=== PATIENT | female | born 1950 ===

== ENCOUNTER 2019-05-03 07:38 | Inpatient (IN) | payer MEDICARE, MEDICAID, OTHER, SELFPAY ==
[2019-04-25 12:39] VITALS: BMI 34.2
[2019-05-03] VITALS (16 sets, daily range): BP systolic 109–163; BP diastolic 62–90; PULSE 83–112; RESP 10–16; TEMP 36.2–37.1; O2SAT 92–100; BMI 33.5
--- NOTE | 2019-05-03 | DI.RAD.S_ITS ---
PROCEDURE: XR CERVICAL SPINE 2V OR 3V INDICATIONS: C6-7, C7-T1 ACDF, POSTERIOR FUSION TECHNIQUE: 3 view(s) of the cervical spine were acquired. COMPARISON: None. FINDINGS: Spot fluoroscopic intraoperative images demonstrating reported C6-C7 and C7-T1 ACDF and posterior fusion Dictated by: Carlos Gallego M.D. on 05/03/2019 at 15:06 Approved by: Carlos Gallego M.D. on 05/03/2019 at 15:07
[2019-05-03] MEDS: LACTATED RINGERS 1,000 ML 42 ML IV ×2 (10:00→12:48)
--- NOTE | 2019-05-03 10:36 | PM.PREOP ---
Pre-operative Note Interval Note History & Physical reviewed/Exam performed by Physician: Yes Changes to H&P: No
[2019-05-03] MEDS: ALBUTEROL 2.5 MG/3 ML NEB (ADULT) INH (11:20)
--- NOTE | 2019-05-03 11:24 | P.OP_ITS ---
Operative Date/Time/Diagnoses Date of procedure: 05/03/19 Time of procedure: 14:35 Post-op diagnosis: same Procedure & Clinicians Procedure: C6-7, C7-T1 posterior instrumented fusion C6-7, C7-T1 anterior cervical diskectomy and fusion C6-7 and C7-T1 cages Removal of anterior cervical plate Iliac crest bone graft aspirate Use of microscope Same procedure as scheduled: Yes Indications: [age] year old female with intractable pain from cervical stenosis and disc herniation. They had failed conservative management and requested operative intervention. Risks and benefits of surgery were discussed and appropriate consents were obtained. Surgeon: Lawrence Castaneda Community Case Manager: Leidy Garcia Anesthesia Type: General Operative Notes Findings: None Closure Type: primary Specimen(s): none sent Prosthetic devices, grafts, tissues, transplants, or devices: Removed Medtronic Premiere plate Inserted [place] DTrax posteriorly and Meenu MIN-C anteriorly Applied: catheter Estimated Blood Loss (mL): 10 Procedure in detail: The patient was brought to the operating room and intubated on the stretcher. Time-out was performed. There were then rolled over to the well-padded prone position on chest rolls. Two views of fluoroscopy were taken to confirm our positioning. The neck was then prepped and draped in the standard sterile fashion. Preoperative antibiotics were given. Using fluoroscopy, we localized for planned incisions. Two small 8 mm horizontal incisions were made over the lateral masses approximately 2 fingers below our planned surgical site. We then spread down and opened up the fascia. Then percutaneously placed our Steinmann pin through the soft tissue into the facet joint at C6-7 under fluoroscopic visualization. We used the reamer to decorticate the lateral masses compromising the facet. A trocar was placed over the Steinmann pin into the facet and then the pin was removed. We used a rasp to decorticate the facet joint itself. We then filled the DTrax cage with Osteocell bone graft and impacted it into the facet joint at C6-7 under fluoroscopic guidance. We then took the lateral mass screw and placed it through the cage and then into the lateral mass for the posterior screw fixation. The studio manager was removed and we packed more bone graft down the trocar covering the lateral mass. This was done bilaterally. This completed the instrumented posterior fusion at C6-7. We then went to the next level at C7-T1. The same procedure was performed with preparation, placement of the cage with bone graft, and placement of the screw for instrumented posterior fusion bilaterally at C7-T1. The wounds were irrigated. The skin was closed and a sterile dressing placed. The patient was then rolled over to the table in the supine position and positioned for the anterior surgery. The arms were tucked and a shoulder roll was placed. The neck and left iliac crest were prepped and draped in the standard sterile fashion. A 3 cm oblique incision was made on the left side of the neck along the skin fold utilizing her previous lower incision. Bovie was used to split the platysma. We then bluntly dissected a standard anterolateral approach to the precervical fascia. A marker was placed and x-ray taken to confirm our positioning. The old plate was cleared off and removed with standard technique. We then used the Bovie to the subperiosteally lift up the longus colli muscles. Self-retaining retractors were placed. We then placed [place] pins and distracted across the C7-T1 disc space. We brought in the microscope. A complete anterior discectomy was performed at C7-T1 using a combination of scalpel, curettes, pituitaries, and [place] rongeurs. Visualization was difficult with the angle over the sternum but we rolled to take the disc all the way out down to the PLL. The bur was used to decorticate the endplates. At the end a nerve hook could be swept cephalad caudally and out the neural foramen and everything was open. We trialed for our cages. A small stab incision was made over the left iliac crest. We placed a Jamshidi aspiration needle into the iliac crest and aspirated several mL of bone marrow graft. We then took our Meenu LDR MIN-C cage and packed it with Osteocell, and mixed in the bone marrow aspirate. The cage was then placed into the disc space under fluoroscopic guidance. The 2 locking plates were placed through the cage for fixation. This completed the ACDF at C7-T1. We then went to the next level at C6-7. Again a complete diskectomy was performed now including taking down the PLL and posterior osteophytes and disc material. The endplates were prepped with a bur. We trialed and then packed our MIN-C cage with the bone graft and then placed into the disc space. The locking plates were placed as well. This completed the ACDF at C6-7. Final x- rays were taken. The wound was copiously irrigated. There was no bleeding. The carotid was bleeding nicely. The platysma was closed. The superficial skin were closed. A Steri-Strip was placed over the iliac crest incision. Sterile dressings were placed. The patient was then extubated and brought to the recovery room without complication. Complications: none Post-operative Condition: stable Disposition: PACU Plan for aftercare: Inpatient. Up with therapy.
[2019-05-03] MEDS: CEFAZOLIN 2 GM/100 ML FROZ.PIGGY IV ×2 (11:45→19:55)
--- NOTE | 2019-05-03 12:20 | SUR.OPER ---
Prone on padded OR bed, head in foam head support, gel chest rolls, gel pad under knees, pillow under lower legs, toes free of pressure, arms tucked to the sides and secured with draw sheet and towel clips. Bilateral shoulders taped to the bed. Safety belt at thigh.
[2019-05-03] MEDS: BUPIVACAINE 0.25% W/ EPI 30 ML VIAL 60 ML INJ (12:49)
[2019-05-03] MEDS: THROMBIN (RECOMBINANT) 5,000 UNIT VIAL 5000 UNIT TOP (12:50)
[2019-05-03] MEDS: SODIUM CHLORIDE 0.9% 1,000 ML, GENTAMICIN 80 MG IRR (12:50)
--- NOTE | 2019-05-03 13:24 | SUR.OPER ---
Supine on padded OR bed, head on pillow, arms wrapped in gel pad and tucked to the sides, legs uncrossed, safety belt at thigh, tape over blanket over lower legs.
[2019-05-03] MEDS: HYDROMORPHONE 2 MG INJ 0.5 MG IV ×6 (15:25→15:50)
[2019-05-03] MEDS: OXYCODONE IR 5 MG TABLET 10 MG PO (18:19)
[2019-05-03] MEDS: ATORVASTATIN 20 MG TABLET PO (18:19)
[2019-05-03] MEDS: LACTATED RINGERS 1,000 ML 125 ML IV (18:20)
[2019-05-03] MEDS: OXYCODONE IR 5 MG TABLET 15 MG PO (19:55)
[2019-05-03] MEDS: GABAPENTIN 300 MG CAPSULE PO (20:09)
[2019-05-03] MEDS: SENNOSIDES 8.6 MG TABLET 17.2 MG PO (20:09)
[2019-05-03] MEDS: diphenhydrAMINE 25 MG TABLET PO (20:09)
[2019-05-03] MEDS: DOCUSATE 100 MG CAPSULE PO (20:09)
[2019-05-03] MEDS: METFORMIN HCL 500 MG TABLET 1000 MG PO (20:09)
[2019-05-03] MEDS: TOPIRAMATE 25 MG TABLET 50 MG PO (20:11)
[2019-05-03] MEDS: INSULIN ASPART 100 UNIT/ML INSULN PEN 30 UNIT SUBCUT (21:11)
[2019-05-04] VITALS (8 sets, daily range): BP systolic 100–127; BP diastolic 52–64; PULSE 83–97; RESP 16–19; TEMP 36.1–37.7; O2SAT 95–98
[2019-05-04] MEDS: LACTATED RINGERS 1,000 ML 125 ML IV ×2 (02:57→11:29)
[2019-05-04] MEDS: OXYCODONE IR 5 MG TABLET 15 MG PO ×2 (02:58→05:58)
[2019-05-04] MEDS: CEFAZOLIN 2 GM/100 ML FROZ.PIGGY IV (04:47)
--- NOTE | 2019-05-04 08:10 | P.PN_ITS ---
Subjective Subjective Date Patient Seen: 05/04/19 Time Patient Seen: 08:10 Interval history: Pain is all on the back of the neck, 7 to 8. She has been taking 15 mg of oxycodone but it is making her itch. She does report that after previous surgeries that given her some Dilaudid and she responded well to that. Exam Vital Signs (past 8 hours): - 05/04/19 00:20 05/04/19 05:44 Temperature 99.3 F 99.8 F H Pulse Rate 83 87 Respiratory Rate Blood Pressure 123/62 112/57 L Pulse Oximetry 98 96 Oxygen Delivery Method Room Air Oxygen Flow Rate 0 Const Orientation: alert and oriented x3 Back/Spine/Pelvis Other: Minimal drainage on posterior dressing, however, this was changed overnight. Anterior clean dry intact. 5/5 motor both upper extremities. Drain over last 3 shifts Assessment & Plan Post-op Postoperative Procedures: Procedures Operation Date: 05/03/19 10:15 Actual Procedures Side Surgeon p * C67 & C7T1 anterior discectomy & fusion & instrumented posterior fusion with bone graft , removal of old cervical plate Lawrence Castaneda MD We are going to work on pain control. I will add Dilaudid to see if that can help while she is in the hospital. She does have a history of chronic pain management and her pain doctor had filled all of her prescriptions prior to surgery with anticipated increased usage after surgery so she will not need new prescriptions from us. She normally takes oxycodone but her pain doctor also gave her some morphine. She is not sure if this was long-acting her short- acting, I think she is best to stay with just straight oxycodone when she goes home as she has not taken the morphine yet. I will add a sliding scale insulin today. Her drain output has been moderate, I am going to keep this in.
[2019-05-04] MEDS: DOCUSATE 100 MG CAPSULE PO ×2 (08:18→21:37)
[2019-05-04] MEDS: METFORMIN HCL 500 MG TABLET 1000 MG PO ×2 (08:19→21:36)
[2019-05-04] MEDS: TOPIRAMATE 25 MG TABLET 50 MG PO ×2 (08:20→21:37)
[2019-05-04] MEDS: FLUTICASONE 120 SPRAY/16 GM SPRAY.SUSP NASAL (08:20)
--- NOTE | 2019-05-04 08:23 | PC.NURSE ---
Addendum entered by Nolvia Arias R.N. 05/04/19 13:52: pt reporting mild irritation to adhesives around posterior neck dressings. pt declining benadryl. Reporting moderate pain after Dilaudid, but resting in bed currently. Original Note: AM SHIFT pt AO and receptive to care. Reporting 8/10 pain to neck, 15mg Oxycodone administered at 0600. Dressings CDI. Drain compressed. [place] drainage to gravity. Soft collar on. SCD's running. Reporting mild, generalized itching. Doctor made rounds during my assessment, stated he will add a sliding insulin scale and dilaudid. Currently holding pt's 0900 losartan for BP of 100/50. We will recheck BP after breakfast and assess losartan need then.
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
[2019-05-04] MEDS: INSULIN ASPART 100 UNIT/ML INSULN PEN 30 UNIT SUBCUT ×2 (09:45→18:37)
[2019-05-04] MEDS: INSULIN GLARGINE 100 UNIT/ML 3ML PEN 45 UNIT SUBCUT (09:46)
--- NOTE | 2019-05-04 09:50 | PC.NURSE ---
Addendum entered by Nolvia Arias R.N. 05/04/19 14:39: pt declined her 1unit of Novalog at 1100. stated she wants to wait until she eats. After she ate, pt declined insulin again. CBG was 99. Original Note: INSULIN pt takes set units for novalog and lantus. pt request only 20 units of Novalog this AM due to not eating a lot of breakfast. CBG 148 before breakfast and monitor for complications. Denying s/s of hypoglycemia currently.
[2019-05-04] MEDS: HYDROMORPHONE 4 MG TABLET PO ×3 (11:28→19:21)
--- NOTE | 2019-05-04 11:46 | CM.DANOTE ---
Addendum entered by Yasmin Barr LPN 05/04/19 14:36: Florence back from [facility]: she confirms they will have a female bed open Monday. Says her colleague Melissa will be on Monday to follow on the process. She said she does see that pt had rehabbed there before but in 2018, not 2019. She is aware that the pt expects to d/c to her home setting after she is ready to leave the snf. She confirms there is no direct admission line and that vm is checked on Monday but no one in admissions will be present so will be best for the DCPlanner here to followup Monday morning to continue the process. Addendum entered by Yasmin Barr LPN 05/04/19 13:20: Spoke with office assistant receptionist at [facility] in [place]: [phone] and was sent to admission office/left vm which is checked frequently 7 days week. Faxed referral information to : [phone]. CM team will be following. PASRR will be needed. Original Note: Discharge Planning/Care Management DCP: assessment: case received, EMR reviewed and met with pt. Introduced self and role. Pt is a 69 year old female who admitted yesterday for a planned cervical fusion and removal of old hardware. Review of her scanned H&P from orthopedic clinic shows history of multiple spinal and joint surgeries. Pt reports I've had about 40 surgeries over the years. Payer: Medicare and Medicare Admission status: INPT: just confirmed by UR VENU Smith PT and OT are ordered and seeing pt for first time today. OT CJ just reported she was recommending snf rehab at d/c. Pt says she has planned for snf stay and that she did talk with the surgeon about this. (see dcp template below for details.) SNF choice list: discussed. Choice: [facility] can take me, they are the best in our area and I have been there before in October after knee surgery. Pt confirms she lives alone and has no family support but does have alevism family. She identifies 3 people who have offered to drive her to the facility when she is stable for d/c. PCP: Michael Brown Pt also is under care of a pain clinic to help manage her long standing chronic pain care. Now that have confirmation of admission status will make referral to [facility] and go from there. Will keep pt updated, have updated RN and [facility] as their notes thus far do not indicate a post d/c plan. CM Discharge Assessment Start: 05/04/19 11:42 Freq: Status: Active Protocol: Document 05/04/19 11:43 ITV (Rec: 05/04/19 11:46 ITV [id number]) Discharge Planning Assessment Advance Directives? No Advance Directives on File No History Provided By Patient,Medical Record Has Patient been admitted in last 30 No days? Prior Living Arrangements House Household Members none Independent with ADL's Yes: limited by pain Is patient alert and oriented? Yes Comment has some DME from prior surgeries. Was not currently using anything prior to this surgery. Patient/Family Preference Long-Term Facility Comment was at [facility] in October 2018. Prefers this if possible. Additional Comment Admission status still in review: per UR RN Luis: will wait to give referral until this is known Medicare Choice List Provided Yes Whiteboard Updated in Patient Room with Yes name and ext. # of Mobile Phlebotomist Review Status In Process Pre-Anesthesia Assessment Start: 04/25/19 12:37 Freq: Status: Complete Protocol: Document 04/25/19 12:39 CAB (Rec: 04/25/19 13:55 CAB [id number]) Pre-Anesthesia Assessment PAC Comment Pt states she is not going to take any of her medications day before surgery, I don't do that Pt has a pain management contract and wants it noted not to give her ANY pain med prescriptions Patient Information Reviewed Via Phone Assessment Assessment Completed With Patient H&P Completed Within 30 Days Yes Diagnostic Results BMP/CMP,CBC,EKG Comment Outside labs/EKG scanned to record Primary Care Provider Michael Brown Medical Clearance Received Yes Seen Specialist in Last 12 Months Yes Specialist Seen Orthopedist Comment PCP pre-op clearance 03/07/19 scanned to record Primary Language Filipino Preferred Language Filipino Fire Sprinkler Designer Required No Height 147.32 cm Weight 74.389 kg Body Mass Index (BMI) 34.2 Hearing Ability Normal Visual Assist Glasses Dentition Type Full- Upper & Lower Barriers to Learning Memory Other Aids No Hx Anesthesia Reactions No Hx Family Anesthesia Reaction No Hx Malignant Hyperthermia No Hx Blood Transfusions No Anesthesia Review Requested No Leadite Worker Yes: Minimal support, niece is bipolar/epileptic alcohol intake former Alcohol Intake Frequency Other: Hx of ETOH, quit 41 years ago Smoking Status Former smoker how long ago did patient quit smoking Quit 1995 Substance Use Type does not use Pain Present Pain Reported Musculoskeletal Symptoms Abnormal Gait,Difficulty Walking,Joint Pain,Limited Range of Motion,Neck Pain, Numbness,Tingling History of Falling (Recent or History of No ) Patient is completely paralyzed or No completely immobile Mental Status Oriented to own ability Is patient on oxygen? No Does patient have LAL/SOB No Hx Sleep Apnea Yes CPAP/BIPAP use prescribed not used Currently Taking a Beta Nathaniel No Can You Climb a Flight of Stairs Without Yes SOB Hx Chest Pain No Hx SOB No Hx Syncope or Dizziness No Anti-Coagulant Therapy No Has a Biometric Screener No Cardiac Testing No Hx Pacemaker/ICD No Pacemaker Rep Required? No Cardiac Clearance Received Not Applicable Diet Type At Home Regular dysphagia No Bladder Pattern Urgency Urinary Catheter Present No Hx Urinary Self Catheterization No Diabetes Yes HgbA1C 6.7 Date 03/21/19 Patient No Lactating No Hx Drug Resistant Organism No Presence of External or Internal Medical Yes: Hardware in [employer] locations Have you traveled outside the [facility] in the last 30 days? Marital Status Single Lives With none Prior Living Arrangements House Number of Floors (Floors) One Floor Patient Discharge Plan Description Return Home Comment Niece-only supprt, bipolar, epileptic Feels Safe in Current Environment Yes Been Physically Hurt or Threatened By a No Person in Current Environment Do you have thoughts of harming yourself None or others? Are you currently considering suicide? No Do you have a plan to hurt yourself or No Plan others? Do You Have Any Spiritual Beliefs That No May Affect Your HC Choices? Do You Have Any Cultural Practices That No May Affect Your HC Choices? Comment Mu-Ism Who Can We Speak to About Patient's Care Family, friends Identifying Code for Release of Patient Declines to issue Information Health Care Proxy/Next of Kin Aleksandra (friend) Health Care Proxy Emergency Contact Name Aleksandra (friend) Emergency Contact Advance Directives? No PAC Instructions Durable medical equipment, Medications to take/avoid, Nasal antibiotic,No ETOH/ petroleum product on skin DOS, NPO,Post-op transportation,Pre -surgical wash,Sturdy shoes/ comfortable clothes,Do not bring valuables and remove jewelry
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
--- NOTE | 2019-05-04 13:47 | PT.IPTN ---
Current Diagnoses Other spondylosis with myelopathy, cervical region (05/03/19) Other cervical disc displacement, unspecified cervical region (05/03/19) Arthrodesis status (05/03/19) Surgery Performed Operation Date: 05/03/19 10:15 Actual Procedures p * C67 & C7T1 anterior discectomy & fusion & instrumented posterior fusion with bone graft , removal of old cervical plate - Lawrence Castaneda MD Physical Therapy Treatment Note M2 PT-IP Current Condition Start: 05/04/19 12:26 Freq: NEEDED Status: Active Protocol: Document 05/04/19 09:35 AB (Rec: 05/04/19 12:39 AB [id number]) Physical Therapy Current Condition Current Condition Evaluation Date 05/04/19 Treatment Diagnosis s/p C6-T1 posterior fusion and ACDF; difficulty in walking Onset Date 05/03/19 Precautions Cervical Spine Precautions Soft Collar for Comfort,No Heavy Lifting,Log Roll M3 PT-IP Subjective Start: 05/04/19 12:26 Freq: NEEDED Status: Active Protocol: Document 05/04/19 13:40 GGD (Rec: 05/04/19 13:47 GGD [id number]) Subjective Physical Therapy Visit Type Type Treatment Note Visit Start Time 13:21 Visit Stop Time 13:40 Total Visit Minutes 19 Number of BREAKER OILER Visits 1 Physical Therapy Visit Comments Patient Comments Pt states that she want's to go back to bed. Therapy Pain Assessment Pain When Pain Assessed At Rest Pain Present Pain Present Pain Reported M4 PT-IP Mobility and Gait Start: 05/04/19 12:26 Freq: NEEDED Status: Active Protocol: Document 05/04/19 13:40 GGD (Rec: 05/04/19 13:47 GGD [id number]) PT-Bed Mobility Assessment Rolling Type of Rolling Log Rolling Sit to Supine Sit to Supine Maximum Assistance,1 Person Assistance,Bedrails PT-Transfer Assessment Sit to and From Stand Sit to and from Stand Minimal Assistance,1 Person Assistance,Use of Upper Extremities Equipment Transfer Assistive Device Gait Belt,Front Wheeled Walker Orthotic/Prosthetic Devices or Brace: Yes Transfers Transfer Destination Chair Transfer Ability Level of Assist Minimal Assistance,1 Person Assistance,Use of Upper Extremities Gait Assessment Gait Gait Assistance Required: Minimum Assistance,1 Person Assist Distance (Feet) 12 Able to Maintain Weight Bearing Status Yes During Gait Assistive Devices Assistive Device Gait Belt,Front Wheeled Walker Orthotic/Prosthetic Devices or Brace: Yes Gait Deviations General Gait Pattern Decreased Stride Length, Decreased Feet Clearance Factors Limiting Gait Function Factors Limiting Gait Function Decreased Activity Tolerance, Decreased Strength,Limited Range of Motion,Pain,Poor Balance,Poor Safety Awareness M5 PT-IP Objective Assessments Start: 05/04/19 12:26 Freq: NEEDED Status: Active Protocol: Document 05/04/19 09:35 AB (Rec: 05/04/19 12:39 AB [id number]) Orientation Orientation/Cognition Level of Alertness Alert Orientation Name,Age,Situation Safety Awareness Decreased Safety Awareness Memory Description Short Term Impaired Comments When asked if there will be somebody assist her at home, pt answered I don't know. When asked if she can call anybody assist her when needed if she goes home, pt answered : I don't Know Gross Range of Motion Lower Extremity ROM Assessment Within Functional Limits Strength Lower Extremity Strength Hip 4-/5 Knee 4-/5 Muscle Tone Muscle Tone WNL Yes M6 PT-IP Treatment Start: 05/04/19 12:26 Freq: NEEDED Status: Active Protocol: Document 05/04/19 13:40 GGD (Rec: 05/04/19 13:47 GGD [id number]) Physical Therapy Treatment Education Education Provided Precautions M7 PT-IP Assessment and Plan Start: 05/04/19 12:26 Freq: NEEDED Status: Active Protocol: Document 05/04/19 13:40 GGD (Rec: 05/04/19 13:47 GGD [id number]) PT Summary Assessment and Plan Summary Assessment Summary Pt is max a with bed mobility. She was min A for sit to stand and gait. Pt is very slow moving. Pt unsteady with gait. Pt will need SNF rehab before d/c home. Frequency of Treatment Frequency Of Treatment Twice a Day Treatment Plan Physical Therapy Treatment Plan Bed Mobility Training,Transfer Training,Gait Training, Therapeutic Exercise,Balance Retraining,Post Op Education, Discharge Planning,Hot or Cold Pack,Neuromuscular Re-ed, Coordination Retraining,Manual Therapy Recommendations To Nursing Amount of Assist Needed 1 Person Assist Discharge Recommendations PT Discharge Recommendations SNF Rehab
[2019-05-04] MEDS: diphenhydrAMINE 25 MG TABLET PO (15:33)
--- NOTE | 2019-05-04 16:03 | PT-IP ANOTE ---
Talked to pt's nurse Nolvia this morning if a speech therapist needs to see the pt. Nurse stated that pt is swallowing fine with her and able to take her medication without any issues and pt's throat pain is due to recent surgery. stated that it is ok if speech will not be able to see the pt today.
[2019-05-04] MEDS: ATORVASTATIN 20 MG TABLET PO (18:10)
[2019-05-04] MEDS: hydrOXYzine pamoate 25 MG CAPSULE PO (18:34)
--- NOTE | 2019-05-04 18:41 | PC.NURSE ---
Pt requests when to do blood glucose checks and how much insulin to give. She does not follow the orders as written.
[2019-05-04] MEDS: GABAPENTIN 300 MG CAPSULE PO (21:36)
[2019-05-04] MEDS: SENNOSIDES 8.6 MG TABLET 17.2 MG PO (21:36)
[2019-05-05] VITALS (8 sets, daily range): BP systolic 107–125; BP diastolic 53–74; PULSE 89–99; RESP 16–22; TEMP 36.2–37.7; O2SAT 92–96
--- NOTE | 2019-05-05 01:59 | PC.NURSE ---
Addendum entered by Annalee Rodriguez R.N. 05/05/19 06:25: 0615 Catheter d'cd as per MD order; instructed in sx/prevention of UTI Addendum entered by Annalee Rodriguez R.N. 05/05/19 03:07: When repositioned, patient complains of 10/10 pain in posterior incisional area; medicated with po Dilaudid. Original Note: Patient drowsy upon being awakened and speech is delayed and having some difficulty word finding initially, but after more awake responses more clear. Breath sounds with inspiratory crackles at bases with RA sat of 92%. HRR. Denies nausea. BT present and is passing flatus. Indwelling catheter is patent; urine is clear yellow. Needing assistance to reposition q2h as not moving herself. Has limited ROM in bilateral UE and is weak in all extremities; denies tingling/numbness. States she has difficulty swallowing water but denies throat pain. Does state posterior neck hurts and rates severity as 5/10 but once repositioned, declined offer of pain medication although did agree to ice pack. Dressings to anterior/posterior neck and left hip are CDI. GLO/Al drain is compressed and intact. Soft collar applied and calf SCD's also applied at this time. Reports 1 fall in past 3 months; fall risk score is high and bed alarm is activated.
[2019-05-05] MEDS: HYDROMORPHONE 4 MG TABLET PO ×4 (03:05→14:55)
--- NOTE | 2019-05-05 07:26 | PM.PNPO.1 ---
Subjective Subjective Date Patient Seen: 05/05/19 Time Patient Seen: 07:26 Interval history: Her pain was as good as 5/10 but is back up to about 8/10 right now. All in the neck. She is also complaining of increasing in her chronic low back pain. Exam Vital Signs (past 8 hours): - 05/05/19 01:45 PDT 05/05/19 05:58 Temperature 99.8 F H 97.6 F Pulse Rate 98 H 99 H Respiratory Rate 20 20 Blood Pressure 124/74 121/66 Pulse Oximetry 92 96 Oxygen Delivery Method Room Air Oxygen Flow Rate 0 Const Orientation: alert and oriented x3 Back/Spine/Pelvis Other: Mild dry drainage on posterior dressing. Anterior clean dry intact. Drain output 15/5/5 over the last 3 shifts. 5/5 motor both upper extremities. Assessment & Plan Post-op Postoperative Procedures: Procedures Operation Date: 05/03/19 10:15 Actual Procedures Side Surgeon p * C67 & C7T1 anterior discectomy & fusion & instrumented posterior fusion with bone graft , removal of old cervical plate Lawrence Castaneda MD she seems to be doing better on the Dilaudid and we will stick with that. It is not causing the itching that the oxycodone was. She is very slow to mobilize, I think she is going to require group home and we're looking into that for tomorrow. I think her chronic low back pain will be better once she is up and moving around better.
--- NOTE | 2019-05-05 07:28 | PM.DS.1 ---
History of Present Illness History of Present Illness Date Patient Seen: 05/06/19 Time Patient Seen: 07:42 Chief complaint: Cervical Fusion Anterior/Posterior Narrative: 69-year-old female with 4 previous cervical surgeries. She has had a posterior laminectomy as well as a C3 through 6 ACDF. She presented with increasing pain and weakness going into the arms as well as increasing neck pain. Only temporary relief with massage and physical therapy. She has a history of chronic pain is treated with chronic narcotic medication, oxycodone q.i.d. through pain management. Discharge Providers Provider Date of admission: 05/03/19 07:38 Discharge Date: 05/06/19 Primary care physician: Michael Brown MD Consults: 04/25/19 13:56 Consult to Respiratory Therapy Evaluate & Treat Comment: INPT 05/03, XI-No CPAP Physician Instructions: Evaluate and treat 05/03/19 08:40 Consult to Respiratory Therapy Evaluate & Treat Comment: Physician Instructions: Evaluate and treat 05/03/19 17:13 Consult to Occupational Therapy Evaluate & Treat Comment: Physician Instructions: Evaluate and treat Consult to Physical Therapy Evaluate & Treat Comment: Physician Instructions: Evaluate and Treat Consult to Speech Therapy Evaluate & Treat Comment: s/p acdf Physician Instructions: Evaluate and treat Discharge provider: Lawrence Castaneda MD Summary Hospital Course Discharge Diagnosis: Cervical stenosis with myelopathy Hospital Course: She was admitted on 05/03/2019 for a C6-7 and C7-T1 anterior cervical diskectomy and fusion and intermittented posterior fusion. After surgery her arm symptoms had mostly all resolved but she was having significant pain in the neck. She was having a fair amount of itching from the oxycodone and was switched over to Dilaudid which seemed to work better for pain control as well as not cause the itching. However, she was very slow with mobilization and is felt she would best benefit with skilled inpatient rehab. She had a drain placed at the time of surgery. Had a fair amount of output the 1st day but by the 2nd day after surgery had dried up and was removed. Status at Discharge Cognitive/behavioral status at discharge: oriented Functional status at discharge: uses cane/walker Overall status at discharge: patient is progressing back to baseline Exam Vital Signs (past 8 hours): - 05/05/19 01:45 PDT 05/05/19 05:58 Temperature 99.8 F H 97.6 F Pulse Rate 98 H 99 H Respiratory Rate 20 20 Blood Pressure 124/74 121/66 Pulse Oximetry 92 96 Oxygen Delivery Method Room Air Oxygen Flow Rate 0 Const Orientation: alert and oriented x3 Back/Spine/Pelvis Other: 5/5 motor both upper extremities. Anterior dressing CDI. Mild dry drainage on the posterior dressing Objective Labs Result Diagrams: 05/05/19 11:40 05/06/19 03:34 Discharge Plan Discharge Plan Patient Disposition: [facility] Other facility: [place] Under care of provider: facility physician Consult as needed: Dental, Hearing, Mental health, Podiatry and Vision Discharge Med Rec/Prescriptions Prescriptions: New diazepam 5 mg Tablet 5 mg PO Q6HR PRN (Reason: Spasms) Qty: 20 RF: 0 hydromorphone 2 mg Tablet See Rx Instructions .ROUTE .COMPLEX PRN (Reason: Pain, Severe (7-10)) Qty: 40 RF: 0 Continued atorvastatin 20 mg Tablet 20 mg PO QPM RF: 0 topiramate 25 mg Tablet 50 mg PO BID RF: 0 metformin 1,000 mg Tablet 1,000 mg PO BID RF: 0 losartan 25 mg Tablet 12.5 mg PO DAILY RF: 0 albuterol sulfate [Ventolin HFA] 90 mcg/actuation Hfa Aerosol Inhaler 2 puff INHALATION TID PRN (Reason: sob) RF: 0 fluticasone propionate [Flonase Allergy Relief] 50 mcg/actuation [place],Suspension 2 spray INTRANASAL DAILY RF: 0 Novolog Flexpen U-100 Insulin 100 unit/mL (3 mL) Insulin Pen 30 unit SUBCUT TID RF: 0 Basaglar KwikPen U-100 Insulin 100 unit/mL (3 mL) Insulin Pen 45 unit SUBCUT QAM RF: 0 Narcan 4 mg/actuation [place],Non-Aerosol 1 spray INTRANASAL Q2M PRN (Reason: accidental overdose) RF: 0 Discontinued diclofenac sodium [Voltaren] 1 % Gel 2 g TOPICAL TID RF: 0 oxycodone 10 mg Tablet 10 mg PO Q4H RF: 0 Follow up/Referrals: Michael Brown MD [Primary Care Provider] - Discharge Health Status Brief summary of current health status: 69-year-old female with a C6-7 and C7-T1 anterior and posterior fusion on 05/03/2019. She has a history of chronic pain medication and had difficulty with pain control postoperatively in the hospital. She was limited in her mobility and it was felt she would benefit from skilled rehab. Multidrug resistant organism: No MDRO Precautions: [place] Provider Discharge Instructions Diet: Carb-consistent/Diabetic Liquid consistency: Normal/Thin Food texture: Regular Activity: 10 lbs max lift, soft collar for comfort Skin/Wound/Dressing Care Report to your healthcare provider any signs of infection, such as:: chills, fever, night sweats, increased pain, unusual drainage and unusual redness Dressing: may change dressings and shower POD #5 (05/08/19) Special Rehabilitation Services Reason for rehabilitation: Post-operative therapy Rehab type: Physical therapy, Occupational therapy and Speech therapy Visit Report/Discharge Packet Stand Alone Forms: Surgery Discharge Discharge Data Primary Care Provider: Michael Brown
[2019-05-05] MEDS: SODIUM CHLORIDE 0.9% FLUSH 10 ML IV ×2 (07:59→20:42)
[2019-05-05] MEDS: DOCUSATE 100 MG CAPSULE PO ×2 (08:00→20:43)
[2019-05-05] MEDS: METFORMIN HCL 500 MG TABLET 1000 MG PO ×2 (08:00→20:43)
[2019-05-05] MEDS: TOPIRAMATE 25 MG TABLET 50 MG PO ×2 (08:01→20:42)
[2019-05-05] MEDS: FLUTICASONE 120 SPRAY/16 GM SPRAY.SUSP NASAL (08:02)
[2019-05-05] MEDS: INSULIN GLARGINE 100 UNIT/ML 3ML PEN 45 UNIT SUBCUT (08:05)
--- NOTE | 2019-05-05 08:21 | PC.NURSE ---
Addendum entered by Nilda Sarabia R.N. 05/05/19 15:49: At 1445, assisted pt back to bed, 1PA, left ankle and left wrist elevated on pillows and ice pack placed to each site. No change in discomfort to these areas. Pain reports pain 6-8/10 also to surgical site with prn Dilaudid given X3 this shift. Voided total 3 times. Addendum entered by Nilda Sarabia R.N. 05/05/19 11:24: Around 1105, RN Coordinator Amy in pt's room to assess new left wrist and left ankle pain and swelling. Dr. Stock called at 1123, new orders rec'd for CBC and Uric acid blood draw. Addendum entered by Nilda Sarabia R.N. 05/05/19 10:31: At 0935, RT stated pt requested left SCD removed due to ankle pain, SCD was removed by RT and this RN was notified. At 1006, Dr. Stock notified via phone that pt had this c/o left outer ankle pain with swelling and hard time bearing weight. No known cause at this time, Pt denies bumping, hitting that area, denies falls. Plan for elevation, ice and PT/OT assessment. At 1020, PT reported pt's left wrist painful. Upon assessment, pt able to slightly bend wrist, stopped by pain, slight edema noted compared to right wrist. No redness, bruising noted. Pt denied any known injury to left wrist. Pt denied having any issue prior to hospitalization. At 1030, RN Coordinator also notified. Original Note: Day Shift- Pt A&OX4, able to make needs known using call light, bed alarm on. At 0720, Dr. Castaneda removed anterior neck drain and changed dressing to gauze and tegaderm. CDI. Posterior neck dressing CDI, soft cervical collar in place. Pt c/o 8/10 aching to posterior neck radiating to bilateral shoulders. PRN Dilaudid 4mg given at 0800. CMS+ to BUE, pt does have some weakness greater to LUE than RUE. Pt OOB with BSC as pt had pain when bending left ankle, tender to touch to outer ankle. Puffy edema noted to left outer ankle compared to right outer ankle. No redness noted, no bruise. Denies calf tenderness, no redness to calves. Pt could barely bear weight on left foot due to pain. Will monitor. Pt voided approx 250mls of yellow urine post urinary catheter removal. Call light within reach.
--- NOTE | 2019-05-05 10:37 | PT.IPTN ---
Current Diagnoses Other spondylosis with myelopathy, cervical region (05/03/19) Other cervical disc displacement, unspecified cervical region (05/03/19) Arthrodesis status (05/03/19) Surgery Performed Operation Date: 05/03/19 10:15 Actual Procedures p * C67 & C7T1 anterior discectomy & fusion & instrumented posterior fusion with bone graft , removal of old cervical plate - Lawrence Castaneda MD Physical Therapy Treatment Note M2 PT-IP Current Condition Start: 05/04/19 12:26 Freq: NEEDED Status: Active Protocol: Document 05/04/19 09:35 AB (Rec: 05/04/19 12:39 AB [id number]) Physical Therapy Current Condition Current Condition Evaluation Date 05/04/19 Treatment Diagnosis s/p C6-T1 posterior fusion and ACDF; difficulty in walking Onset Date 05/03/19 Precautions Cervical Spine Precautions Soft Collar for Comfort,No Heavy Lifting,Log Roll M3 PT-IP Subjective Start: 05/04/19 12:26 Freq: NEEDED Status: Active Protocol: Document 05/05/19 10:13 CLB (Rec: 05/05/19 11:46 CLB [id number]) Subjective Physical Therapy Visit Type Type Treatment Note Visit Start Time 10:13 Visit Stop Time 10:37 Total Visit Minutes 24 Number of FISH CUTTING MACHINE OPERATOR Visits 2 Physical Therapy Visit Comments Patient Comments Pt willing to transfer to chair but needs to use BSC. Therapy Pain Assessment Pain When Pain Assessed At Rest Pain Present Pain Present Pain Reported M4 PT-IP Mobility and Gait Start: 05/04/19 12:26 Freq: NEEDED Status: Active Protocol: Document 05/05/19 10:13 CLB (Rec: 05/05/19 11:46 CLB [id number]) PT-Bed Mobility Assessment Rolling Type of Rolling Log Rolling Level of Assist Moderate Assistance Supine to Sit Supine to Sit Maximum Assistance,1 Person Assistance,Bedrails Scooting Scooting to Edge of Bed Contact Guard Assistance PT-Transfer Assessment Sit to and From Stand Sit to and from Stand Minimal Assistance,1 Person Assistance,Use of Upper Extremities Equipment Transfer Assistive Device Gait Belt,Front Wheeled Walker Orthotic/Prosthetic Devices or Brace: Yes Transfers Transfer Destination Chair,Bedside Commode Transfer Technique Stand Step Pivot Transfer Ability Level of Assist Minimal Assistance,1 Person Assistance,Use of Upper Extremities Comments Mobility Comments Pt c/o pain in left ankle and left wrist. Pt unable to use LUE for bed mobility and placed forearm on walker rather than using hand during transfers due to pain. Pt took small steps and was unable to bear much weight on LLE. Pt sat on BSC but didn't think she could transfer to chair so BSC was moved when pt stood and chair was rolled behind pt to sit without needing to ambulate.Pt required Mod A to scoot back in chair with use of draw sheet. Pt was left in chair with LLE elevated with ice, ice was also given to pt for left wrist. Call light and all need placed within reach. Gait Assessment Comments Gait Comments unable to due increase pain of LLE. M5 PT-IP Objective Assessments Start: 05/04/19 12:26 Freq: NEEDED Status: Active Protocol: Document 05/04/19 09:35 AB (Rec: 05/04/19 12:39 AB [id number]) Orientation Orientation/Cognition Level of Alertness Alert Orientation Name,Age,Situation Safety Awareness Decreased Safety Awareness Memory Description Short Term Impaired Comments When asked if there will be somebody assist her at home, pt answered I don't know. When asked if she can call anybody assist her when needed if she goes home, pt answered : I don't Know Gross Range of Motion Lower Extremity ROM Assessment Within Functional Limits Strength Lower Extremity Strength Hip 4-/5 Knee 4-/5 Muscle Tone Muscle Tone WNL Yes M6 PT-IP Treatment Start: 05/04/19 12:26 Freq: NEEDED Status: Active Protocol: Document 05/04/19 13:40 GGD (Rec: 05/04/19 13:47 GGD [id number]) Physical Therapy Treatment Education Education Provided Precautions M7 PT-IP Assessment and Plan Start: 05/04/19 12:26 Freq: NEEDED Status: Active Protocol: Document 05/05/19 10:13 CLB (Rec: 05/05/19 11:46 CLB [id number]) PT Summary Assessment and Plan Summary Assessment Summary Pt c/o left ankle and left wrist pain that is preventing her from walking. Pt required Mod A for bed mobility and Min A for transfer to BSC and then to chair. Goals Bed Mobility Goal Standby Assistance Transfer Goal Standby Assistance,Front Wheeled Walker Gait Goal Standby Assistance,Front Wheel Walker Gait Distance 150 Other Goals up/down 4 steps R rail ascending + 4 steps without rails SBA Days to Meet Goals 5 Frequency of Treatment Frequency Of Treatment Twice a Day Treatment Plan Physical Therapy Treatment Plan Bed Mobility Training,Transfer Training,Gait Training, Therapeutic Exercise,Balance Retraining,Post Op Education, Discharge Planning,Hot or Cold Pack,Neuromuscular Re-ed, Coordination Retraining,Manual Therapy Recommendations To Nursing Amount of Assist Needed 1 Person Assist Discharge Recommendations PT Discharge Recommendations SNF Rehab
[2019-05-05 11:51] LABS: Hematocrit 31.8 % (36-46); Hemoglobin 10.8 g/dL (12.0-16.0); Mean Corpuscular HGB Conc 33.9 % (30-36); Mean Corpuscular Hemoglobin 29.1 PG (26-34); Mean Corpuscular Volume 86.1 fL (80-100); Platelet Count 256 X10^3/uL (150-400); Red Blood Cell Count 3.69 X10^6/uL (4.0-5.2); Red Cell Distribution Width 13.4 % (11.6-14.8); White Blood Cell Count 10.6 X10^3/uL (4.5-11.0)
--- NOTE | 2019-05-05 12:31 | CM.DPC ---
Addendum entered by Yasmin Barr LPN 05/05/19 16:03: OT courtney completed yesterday and placed into EMR today [id number] is now faxed to [facility] to add to the referral review. Addendum entered by Yasmin Barr LPN 05/05/19 12:49: Contact for [facility] for Monday is Melissa: [phone]: ask for admissions . Original Note: DCP: continued: Dr. Castaneda was here early today and noted plan for ongoing care and snf need. OT did see pt yesterday, those notes are still pending. TOPOGRAPHIC COMPUTATOR Keyonna worked with pt today. Pt remains slow to mobilize and pt now with apparent new onset of L wrist and L ankle pain/see RN Nilda's notes for details and interventions. Dr. Castaneda is aware and has ordered new labs. MD,PT and RN notes are faxed as update to [facility]. DCP team to follow up as per plan tomorrow with the admission staff at the facility./see DCP notes of yesterday for details.
--- NOTE | 2019-05-05 14:50 | PT.IPTN ---
Current Diagnoses Other spondylosis with myelopathy, cervical region (05/03/19) Other cervical disc displacement, unspecified cervical region (05/03/19) Arthrodesis status (05/03/19) Surgery Performed Operation Date: 05/03/19 10:15 Actual Procedures p * C67 & C7T1 anterior discectomy & fusion & instrumented posterior fusion with bone graft , removal of old cervical plate - Lawrence Castaneda MD Physical Therapy Treatment Note M2 PT-IP Current Condition Start: 05/04/19 12:26 Freq: NEEDED Status: Active Protocol: Document 05/04/19 09:35 AB (Rec: 05/04/19 12:39 AB [id number]) Physical Therapy Current Condition Current Condition Evaluation Date 05/04/19 Treatment Diagnosis s/p C6-T1 posterior fusion and ACDF; difficulty in walking Onset Date 05/03/19 Precautions Cervical Spine Precautions Soft Collar for Comfort,No Heavy Lifting,Log Roll M3 PT-IP Subjective Start: 05/04/19 12:26 Freq: NEEDED Status: Active Protocol: Document 05/05/19 14:48 CLB (Rec: 05/05/19 14:50 CLB [id number]) Subjective Physical Therapy Visit Type Type Patient Refusal Notes Pt refused, RN had just assisted pt to BSC and pt was sitting on EOB. Assisted RN getting pt in supine Max A x2 and dependent boost up to HOB. Will check back with pt in the morning.
[2019-05-05] MEDS: INSULIN ASPART 100 UNIT/ML INSULN PEN 30 UNIT SUBCUT ×2 (14:55→21:14)
[2019-05-05] MEDS: diphenhydrAMINE 25 MG TABLET PO (17:42)
[2019-05-05] MEDS: ATORVASTATIN 20 MG TABLET PO (17:42)
[2019-05-05] MEDS: INSULIN ASPART 100 UNIT/ML INSULN PEN SUBCUT (17:46)
[2019-05-05] MEDS: GABAPENTIN 300 MG CAPSULE PO (20:43)
[2019-05-05] MEDS: SENNOSIDES 8.6 MG TABLET 17.2 MG PO (20:43)
--- NOTE | 2019-05-05 21:40 | PC.NURSE ---
Swelling of L wrist and ankle lessened on this shift. Pt cooperated with turns. Doing IS at 1500/10 x. Eating well. UO since Aleman pulled in am = 1150 mLs, mac, clear. L wrist PIV patent and non painful. Hs fingerstick = 267. + BTs + gas. Faint, small shadow drainage from drain site (drain removed), otherwise dressings C/D/I. Rates pain 6-8/10.
[2019-05-06] MEDS: HYDROMORPHONE 4 MG TABLET PO ×4 (00:01→12:39)
--- NOTE | 2019-05-06 03:30 | PC.NURSE ---
Checked CBG. only 30, pt. is awake able to drink cranberry juice & apple juice mixed with 2 packets of sugar. Also given egg salad sandwich & Ensure. Ordered lab. stat Glucose & co-ordinator notified, will call MD once stat lab glucose has some result. No sign & symptoms of hypoglycemia, skin is dry, was asleep since medicated with 4 mg. of Dilaudid PO @ 0001. Will rechecked her CBG, finger stick & monitor.
--- NOTE | 2019-05-06 03:48 | CM.MNRNOTE ---
Pt. reports @ home when my blood sugar was low @ 36 I sweat a lot. Lab. glucose drawn @ 0334. Mariann from the lab called @ 0357 results was 41, repeat glucose finger stick was done @ 0350 results was 141. coordinator Chloe John RN. notified ordered to just let the MD know in the morning. Will monitor.
[2019-05-06 03:50] VITALS: TEMP 36.7
[2019-05-06 03:58] LABS: Glucose 41 mg/dL (80-110)
--- NOTE | 2019-05-06 05:24 | PC.NURSE ---
Rechecked CBG 178, requested 4 mg. of Dilaudid PO admin. No BM since 05/02/19 but declined MOM @ this time. Reports I'm having bowel movements every other day. Also not sure if she wants to have suppository, wanted to rest now after getting up to the BSC. Still c/o left hand & left foot pain. Will cont. POC & monitor.
[2019-05-06 06:00] VITALS: BP 124/65; PULSE 84; RESP 16; TEMP 36.7; O2SAT 97
--- NOTE | 2019-05-06 07:39 | P.PN_ITS ---
Subjective Subjective Date Patient Seen: 05/06/19 Time Patient Seen: 07:39 Interval history: She had a hypoglycemic episode overnight although this has resolved with treatment. Complaining mostly of pain in the neck as well as lower back. She is having some pain in the left wrist. Exam Vital Signs (past 8 hours): - 05/06/19 03:50 05/06/19 06:00 Temperature 98.0 F 98.0 F Pulse Rate 84 Respiratory Rate 16 Blood Pressure 124/65 Pulse Oximetry 97 Oxygen Delivery Method Room Air Oxygen Flow Rate 0 Const Orientation: alert and oriented x3 Back/Spine/Pelvis Other: Posterior dressing minimal dry drainage. Anterior dressing CDI. 5/5 motor both lower extremities except for 4/5 left shop firer/fireman and intrinsics. No numbness or tingling. Tender to palpation over the left dorsal wrist but full range of motion of the wrist. This appears to be associated with the Tegaderm pulling on her wrist for at the IV site. Objective Labs Result Diagrams: 05/05/19 11:40 05/06/19 03:34 Labs: Laboratory Results - last 24 hr 05/05/19 05/05/19 05/06/19 11:40 11:40 03:34 WBC 10.6 RBC 3.69 L Hgb 10.8 L Hct 31.8 L MCV 86.1 MCH 29.1 MCHC 33.9 RDW 13.4 Plt Count 256 Glucose 41 L* Uric Acid 5.0 Assessment & Plan Post-op Postoperative Procedures: Procedures Operation Date: 05/03/19 10:15 Actual Procedures Side Surgeon p * C67 & C7T1 anterior discectomy & fusion & instrumented posterior fusion with bone graft , removal of old cervical plate Lawrence Castaneda MD Continue mobilize today with physical therapy. Anticipate discharge to shelter facility. Continue to work on pain control. Monitor diabetes closely.
--- NOTE | 2019-05-06 07:39 | PC.NURSE ---
Dr. Castaneda is here reported hypoglycemic episodes @ 0330 CBG. 30 stat lab glucose 41. Rechecked CBG 141 & 178.
[2019-05-06 08:00] VITALS: BP 121/64; PULSE 87; RESP 18; TEMP 36.6; O2SAT 96
--- NOTE | 2019-05-06 08:17 | CM.DPC ---
Addendum entered by Carmen Lawrence R.N. 05/06/19 11:35: Spoke to friend, Aleksandra. She has arranged for patient's metal furrer to pick her up here at approximately 1300. Updated her nurse, Katia. Notified Page at [facility] that patient will be over there between 2:00, 2:30. Ailyn in O.T. is going into room to work with patient and will give her update. Faxed PASSR over to [facility] as well, original is in folder. Asked friend, Aleksandra, to call patient's sister per her request. Addendum entered by Carmen Lawrence R.N. 05/06/19 10:56: Went ahead and called another facility in [place]. Called [facility] and spoke to Kofi in admissions. Stated, he may have a female bed for today. Went ahead and faxed him over clinical notes, med sheets, P.T. notes, history and physical, as well as PASSR to fax# [phone]. He will review as well. At this time, there are two facilities reviewing. Just found out from Page at [facility] that they can accept. Updated Aleksandra, friend. She is not sure if she can pick her up before 4:00, but has some people that she can call, and will call this housing case manager back with approximate time. Updated patient, as well as primary nurse, Katia. Addendum entered by Carmen Lawrence R.N. 05/06/19 10:36: Spoke to Melissa in admissions at [facility]. She stated that she has no beds available for today. Let patient know, and asked her about other facilities. Mentioned local facilities, but patient is wanting to be in the [place] area. Mentioned a facility in [place], and she stated, she would rather stay in [place]. Mentioned [facility], since is it on [place], and patient stated, that would be ok, I think that I have been there before. Called [facility] and spoke to Lianet in admissions. She stated that she may have some availabilities. Page is requesting clinicals to be faxed over. Faxed over DC summary, med list signed, therapy notes, operative notes, as well as latest prognotes. She will review. This housing case manager will follow up with her after she reviews. Addendum entered by Carmen Lawrence R.N. 05/06/19 09:53: Attempted to get in touch with admissions again, left a message with Melissa. If no response in next couple of hours, will ask for enterprise systems administrator. Patient's friend, Aleksandra, confirmed that she will be able to transport patient to the [place]. Original Note: DCP Cont: Left message with Melissa in admissions at [facility] in [place]. Patient has discharge orders for today. Awaiting to hear back. Completed PASSR, updated Katia, nurse, that this technical planner is awaiting to hear back from the [facility]. P: DCP to continue to follow, and will call back the [facility] if no response in the next few hours. Carmen Lawrence RN/Skein Mercerizing Machine Operator
[2019-05-06] MEDS: FLUTICASONE 120 SPRAY/16 GM SPRAY.SUSP NASAL (08:40)
[2019-05-06] MEDS: MAGNESIUM HYDROXIDE 30 ML UDC PO (08:40)
[2019-05-06] MEDS: METFORMIN HCL 500 MG TABLET 1000 MG PO (08:41)
[2019-05-06] MEDS: TOPIRAMATE 25 MG TABLET 50 MG PO (08:41)
[2019-05-06] MEDS: DOCUSATE 100 MG CAPSULE PO (08:43)
[2019-05-06] MEDS: LOSARTAN 25 MG TABLET 12.5 MG PO (08:43)
[2019-05-06] MEDS: SODIUM CHLORIDE 0.9% FLUSH 10 ML IV (08:47)
[2019-05-06] MEDS: INSULIN GLARGINE 100 UNIT/ML 3ML PEN 45 UNIT SUBCUT (08:47)
[2019-05-06] MEDS: INSULIN ASPART 100 UNIT/ML INSULN PEN 30 UNIT SUBCUT ×2 (08:50→13:51)
--- NOTE | 2019-05-06 08:59 | SLP.IPNOTE ---
Orders received. Swallow screen performed with pt, who reports occasional pain with swallow. Stated, Sometimes I cough, but I don't think it's related to [swallowing]. Pt's voice was perceived WNL and she had no complaints of vocal problems. Observed pt consume thin liquid and 4 bites of cantelope. Pt did exhibit strong cough x1 following bite of melon; unclear if related to swallow. She then consumed 2 more bites without incident or overt s/sx of aspiration. Pt is scheduled to discharge today and has been tolerating diet over weekend, per Nsg notes. Further swallow evaluation not warranted at this time. Pt was educated orally and in writing RE potential changes in swallow and voice following ACDF surgery. She verbalized understanding. Will d/c pt from ANNUAL CAMPAIGN MANAGER services at this time.
--- NOTE | 2019-05-06 09:45 | PT.IPTN ---
Current Diagnoses Other spondylosis with myelopathy, cervical region (05/03/19) Other cervical disc displacement, unspecified cervical region (05/03/19) Arthrodesis status (05/03/19) Surgery Performed Operation Date: 05/03/19 10:15 Actual Procedures p * C67 & C7T1 anterior discectomy & fusion & instrumented posterior fusion with bone graft , removal of old cervical plate - Lawrence Castaneda MD Physical Therapy Treatment Note M2 PT-IP Current Condition Start: 05/04/19 12:26 Freq: NEEDED Status: Active Protocol: Document 05/04/19 09:35 AB (Rec: 05/04/19 12:39 AB [id number]) Physical Therapy Current Condition Current Condition Evaluation Date 05/04/19 Treatment Diagnosis s/p C6-T1 posterior fusion and ACDF; difficulty in walking Onset Date 05/03/19 Precautions Cervical Spine Precautions Soft Collar for Comfort,No Heavy Lifting,Log Roll M3 PT-IP Subjective Start: 05/04/19 12:26 Freq: NEEDED Status: Active Protocol: Document 05/06/19 09:20 CLB (Rec: 05/06/19 13:48 CLB [email or web address]) Subjective Physical Therapy Visit Type Type Treatment Note Visit Start Time 09:21 Visit Stop Time 09:46 Total Visit Minutes 25 Physical Therapy Visit Comments Patient Comments Pt wanting to get up to walk even though her ankle hurts. Therapy Pain Assessment Pain When Pain Assessed During Mobility Pain Present Pain Present Pain Reported Location Left Ankle Intensity 8 Scale Used Numeric (1 - 10) Left Wrist Intensity 8 Scale Used Numeric (1 - 10) Posterior Neck Intensity 8 Scale Used Numeric (1 - 10) Pain Management Techniques Apply Cold,Elevation, Modification of Treatment,Re- positioning,Timing of Activity with Medications M4 PT-IP Mobility and Gait Start: 05/04/19 12:26 Freq: NEEDED Status: Active Protocol: Document 05/06/19 09:20 CLB (Rec: 05/06/19 13:48 CLB [email or web address]) PT-Bed Mobility Assessment Sit to Supine Sit to Supine Minimal Assistance,1 Person Assistance,Bedrails PT-Transfer Assessment Sit to and From Stand Sit to and from Stand Minimal Assistance,1 Person Assistance,Use of Upper Extremities Equipment Transfer Assistive Device Gait Belt,Front Wheeled Walker Orthotic/Prosthetic Devices or Brace: Yes Transfers Transfer Destination Bed,Chair,Bedside Commode Transfer Technique Stand Step Pivot Transfer Ability Level of Assist Minimal Assistance,1 Person Assistance,Use of Upper Extremities Comments Mobility Comments Pt eager to get up and ambulate even though her ankle hurts. Pt required Min A sit< >stand due to left wrist pain. Pt was able to perform her own pericare. Gait Assessment Gait Gait Assistance Required: Contact Guard Assist,1 Person Assist Distance (Feet) 60 Able to Maintain Weight Bearing Status Yes During Gait Assistive Devices Assistive Device Gait Belt,Front Wheeled Walker Orthotic/Prosthetic Devices or Brace: Yes Gait Deviations General Gait Pattern Decreased Stride Length, Decreased Feet Clearance Factors Limiting Gait Function Factors Limiting Gait Function Decreased Activity Tolerance, Decreased Strength,Limited Range of Motion,Pain,Poor Balance,Poor Safety Awareness Comments Gait Comments Pt ambulated ~60ft requiring CGA. Pt walks with flexed truck as she will not use her left hand on the walker but pushes the walker with her left forearm. Pt uses small step to gait pattern and took two short rest breaks. M5 PT-IP Objective Assessments Start: 05/04/19 12:26 Freq: NEEDED Status: Active Protocol: Document 05/04/19 09:35 AB (Rec: 05/04/19 12:39 AB [id number]) Orientation Orientation/Cognition Level of Alertness Alert Orientation Name,Age,Situation Safety Awareness Decreased Safety Awareness Memory Description Short Term Impaired Comments When asked if there will be somebody assist her at home, pt answered I don't know. When asked if she can call anybody assist her when needed if she goes home, pt answered : I don't Know Gross Range of Motion Lower Extremity ROM Assessment Within Functional Limits Strength Lower Extremity Strength Hip 4-/5 Knee 4-/5 Muscle Tone Muscle Tone WNL Yes M6 PT-IP Treatment Start: 05/04/19 12:26 Freq: NEEDED Status: Active Protocol: Document 05/04/19 13:40 GGD (Rec: 05/04/19 13:47 GGD [id number]) Physical Therapy Treatment Education Education Provided Precautions M7 PT-IP Assessment and Plan Start: 05/04/19 12:26 Freq: NEEDED Status: Active Protocol: Document 05/06/19 09:20 CLB (Rec: 05/06/19 13:48 CLB [email or web address]) PT Summary Assessment and Plan Summary Assessment Summary Pt with continued c/o left wrist and ankle pain. Pt increased ambulation to ~60ft requiring CGA. Pt requires Min A for sit-stand due to not using left wrist to push up. Pt was able to get into bed with Min A of shoulders but was able to turn her body and get her legs up into bed. Left pt in bed with alarm on, call light witin reach and all needs close. Informed ENGRAVING PRESS OPERATOR. Goals Bed Mobility Goal Standby Assistance Transfer Goal Standby Assistance,Front Wheeled Walker Gait Goal Standby Assistance,Front Wheel Walker Gait Distance 150 Other Goals up/down 4 steps R rail ascending + 4 steps without rails SBA Days to Meet Goals 5 Frequency of Treatment Frequency Of Treatment Twice a Day Treatment Plan Physical Therapy Treatment Plan Bed Mobility Training,Transfer Training,Gait Training, Therapeutic Exercise,Balance Retraining,Post Op Education, Discharge Planning,Hot or Cold Pack,Neuromuscular Re-ed, Coordination Retraining,Manual Therapy Recommendations To Nursing Amount of Assist Needed 1 Person Assist Discharge Recommendations PT Discharge Recommendations SNF Rehab
[2019-05-06] MEDS: diphenhydrAMINE 25 MG TABLET PO (10:39)
[2019-05-06 12:00] VITALS: BP 126/62; PULSE 93; RESP 16; TEMP 36.9; O2SAT 97
--- NOTE | 2019-05-06 12:00 | OT.IP.TRT ---
Current Diagnoses Other spondylosis with myelopathy, cervical region (05/03/19) Other cervical disc displacement, unspecified cervical region (05/03/19) Arthrodesis status (05/03/19) Surgery Performed Operation Date: 05/03/19 10:15 Actual Procedures p * C67 & C7T1 anterior discectomy & fusion & instrumented posterior fusion with bone graft , removal of old cervical plate - Lawrence Castaneda MD Occupational Therapy Treatment Note M2 OT-IP Current Condition Start: 05/05/19 15:30 Freq: Status: Active Protocol: Document 05/04/19 11:54 CGR (Rec: 05/05/19 15:49 CGR [email or web address]) Occupational Therapy Current Condition Current Condition Evaluation Date 05/04/19 Treatment Diagnosis C6-7 and c7-T1 anterior discectomy and fusion. Diagnosis Onset Date 05/03/19 Post Operative Precautions Cervical Spine Precautions Soft Collar for Comfort,Soft Collar at all Times,Rigid Collar,No Heavy Lifting,Log Roll M3 OT- IP Subjective and Pain Start: 05/05/19 15:30 Freq: Status: Active Protocol: Document 05/06/19 11:51 [facility] (Rec: 05/06/19 12:00 [facility] [id number]) OT- Subjective Occupational Therapy Visit Type Type Treatment Note Visit Start Time 11:33 Visit Stop Time 11:52 Total Visit Minutes 19 Occupational Therapy Visit Comments Patient Comments Pt states has already used the bathroom and not wanting to shower until at skilled rehab. OT Pain Assessment Pain When Pain Assessed At Rest Pain Present Pain Present Pain Reported M4 OT- IP ADL's Start: 05/05/19 15:30 Freq: Status: Active Protocol: Document 05/06/19 11:51 [facility] (Rec: 05/06/19 12:00 [facility] [id number]) OT ADL-Grooming General Evaluation Grooming Ability Minimal Assistance Areas Needing Assistance Retrieving/Set-up of Grooming Items,Combing/Brushing Hair Comments OT Grooming Comments Pt able to stand and needing assist to comb the back of her hair. Pt unable to reach to undo velcro of soft collar and will need assist to marita/doff the soft collar. OT ADL-Toileting Comments OT Toileting Comments Pt declined. M5 OT- IP IADL's Start: 05/05/19 15:30 Freq: Status: Active Protocol: Document 05/04/19 11:54 CGR (Rec: 05/05/19 15:49 CGR [email or web address]) OT-Instrumental Activities of Daily Living Deficits IADL Deficits Identified Deficits Home Safety Awareness Awareness of Need for Assistance at Home Good Awareness Ability to Problem Solve Emergency Able to Problem Solve Situations M6 OT- IP Functional Cognition Start: 05/05/19 15:30 Freq: Status: Active Protocol: Document 05/06/19 11:51 [facility] (Rec: 05/06/19 12:00 [facility] [id number]) Cognitive Factors Limiting Selfcare Function Cognitive Ability Level of Alertness Alert Patient Orientation Name,Age,Birthday,Month,Date, Year,Day of Week,Place, Situation Attention Span Ability Capable of Focused Attention Ability to Follow Commands Able to Follow One Step Commands with Increased Time, Able to Follow One Step Commands with Repetition Memory Description 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 Pt did not remember instructions for soft collar and trying to marita it backwards when just prior educated that pt will not be able to turn the soft collar around when on backwards. Pt wanting her hair tucked in the soft collar, but not able to explain why. M7 OT- IP Mobility and Balance Start: 05/05/19 15:30 Freq: Status: Active Protocol: Document 05/06/19 11:51 [facility] (Rec: 05/06/19 12:00 [facility] [id number]) OT-Transfer Assessment Sit to and From Stand Sit to and from Stand Minimal Assistance Transfers Transfer Ability Contact Guard Assistance Technique Transfer Destination Chair Devices Transfer Assistive Devices Gait Belt,Front Wheeled Walker Comments Mobility Comments Due to left wrist pain , pt leans her left arm on the FWW handle while walking to the sink and needing CGA for steadiness. Pt needing BEST to come to stand and vc to push up from the recliner armrests initially. M8 OT- IP Objective Assessments Start: 05/05/19 15:30 Freq: Status: Active Protocol: Document 05/04/19 11:54 CGR (Rec: 05/05/19 15:49 CGR [email or web address]) OT Gross Range of Motion Upper Extremity Range of Motion Assessment Bilaterally Impaired ROM Impairments R shld 0-90 and L shld 0-45. Pt states pain is restricting her ROM and requested increased range not be tested at this time d/t pain. OT Strength Upper Extremity Strength Assessment Bilaterally Impaired Comments Strength Comments grossly 4-/5 distal of the shlds, shlds not tested d/t pain OT- Coordination Assessment Upper Extremity Finger to Nose Test Within Functional Limits Finger Tapping Test Within Functional Limits OT-Muscle Tone Assessment Muscle Tone WNL Yes OT Sensation Assessment Edema Edema Absent M9 OT- IP Assessment and Plan Start: 05/05/19 15:30 Freq: Status: Active Protocol: Document 05/06/19 11:51 [facility] (Rec: 05/06/19 12:00 [facility] [id number]) OT Summary Assessment and Plan Potential Rehabilitation Potential Good Analytic Complexity at Evaluation Low Summary OT Impairments Pain,Range of Motion,Strength, Coordination,Functional Cognition,Functional Mobility, Grooming,Dressing,Toileting, Bathing,Toilet Transfers, Shower Transfers Progress Towards Goals Slow Progress due to Pain,Slow Progress due to Cognition Assessment Summary Pt looking to go to skilled rehab today. Pt will benefit from skilled OT to work on increasing safety awareness and independence for all ADl and functional mobility needs. Frequency of Treatment Frequency Of Treatment Once a Day Treatment Plan OT Treatment Plan ADL Training,Functional Cognition Training,Functional Mobility,Patient/Family Education,Discharge Planning Other Treatment Recommendations and Next Shower if still here. Treatment Focus Discharge Recommendations OT Discharge Recommendations SNF Rehab Home Equipment Needs TBD
--- NOTE | 2019-05-06 12:57 | PC.NURSE ---
AM NOTE - awake, speech clear, states pain l wrist, lle and neck 8 on scale 0/10, during bedside shift report, night RN reports low glucose level 30, interventions done and incr to 141 and 178 at last checks, Dr. 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 Report called to Robert at [phone].
== END 2019-05-06 13:30 | DRG 454 ==
PROVIDERS: Orthopaedic Surgery Adult Reconstructive Orthopaedic Surgery; Admitting Provider Orthopaedic Surgery; PCP Internal Medicine Geriatric Medicine; Visit Provider Orthopaedic Surgery
PROC: 0RG10A0 Fusion of Cervical Vertebral Joint with Interbody Fusion Device, Anterior Approach, Anterior Column, Open Approach (ICD-10-PCS; principal; 2019-05-03 10:15)
DX: M50.20 Other cervical disc displacement, unspecified cervical region (principal); M47.12 Other spondylosis with myelopathy, cervical region; Z98.1 Arthrodesis status; E66.9 Obesity, unspecified; I10 Essential (primary) hypertension; E11.9 Type 2 diabetes mellitus without complications; E78.5 Hyperlipidemia, unspecified; J45.909 Unspecified asthma, uncomplicated; G47.33 Obstructive sleep apnea (adult) (pediatric); G89.29 Other chronic pain; L29.8 Other pruritus; T40.2X5A Adverse effect of other opioids, initial encounter; Z87.891 Personal history of nicotine dependence; Z79.84 Long term (current) use of oral hypoglycemic drugs; V49.60XD Unspecified car occupant injured in collision with unspecified motor vehicles in traffic accident, subsequent encounter; Z68.33 Body mass index [BMI] 33.0-33.9, adult; Y92.230 Patient room in hospital as the place of occurrence of the external cause
CPT/HCPCS: 36415; 72040; 76000; 82947; 82962; 84550; 85027; 94760; 97116; 97162; 97165; 97530; 97535; C1776; J0330; J0690; J1170; J2250; J2405; J2704; J3010; J7613